=== PATIENT | female | born 2000 | race Two or more races ===

== ENCOUNTER 2019-03-14 19:46 | Emergency (ER) | payer BC ==
[2019-03-14] MEDS ORDERED: ACETAMINOPHEN 325 MG TABLET PO ONE (20:53)
--- NOTE | 2019-03-14 20:56 | ER Document Report ---
ED Medical Screen (RME) - General Chief Complaint: Abdominal Pain Stated Complaint: ABDOMINAL PAIN Time Seen by Provider: 03/14/19 20:49 Notes: Patient is a 18-year-old female who presents to the emergency department with abdominal pain. Patient states that back in November she had a miscarriage and ended up having a Nexplanon placed. The past few days she has had some abdominal pain and she took a test. Today she went to her OB and had her Nexplanon removed. She also had a positive test recently. Patient states that she continues to have abdominal cramping in her mid to right lower abdomen. Exam: Tender mid to right lower abdomen. I have greeted and performed a rapid initial assessment of this patient. A comprehensive ED assessment and evaluation of the patient, analysis of test results and completion of medical decision making process will be conducted by an additional ED providers. TRAVEL OUTSIDE OF THE [place] IN LAST 30 DAYS: No - Related Data Allergies/Adverse Reactions: No Known Allergies Allergy (Unverified 03/14/19 20:49) Past Medical History - Social History Frequency of alcohol use: None Drug Abuse: None Physical Exam - Vital signs Vitals: Temp Pulse Resp BP Pulse Ox 98.2 F 78 18 116/67 99 03/14/19 20:28 03/14/19 20:28 03/14/19 20:28 03/14/19 20:28 03/14/19 20:28 Course - Vital Signs Vital signs: Temp Pulse Resp BP Pulse Ox 98.2 F 78 18 116/67 99 03/14/19 20:45 03/14/19 20:45 03/14/19 20:45 03/14/19 20:45 03/14/19 20:45
[2019-03-14 21:57] LABS: ABSOLUTE EOSINOPHILS # (AUTO) 0.1 10^3/uL (0.0-0.6); ABSOLUTE LYMPHOCYTES (AUTO) 3.1 10^3/uL (0.5-4.7); ABSOLUTE MONOCYTES (AUTO) 0.7 10^3/uL (0.1-1.4); ABSOLUTE NEUT (AUTO) 6.3 10^3/uL (1.7-8.2); BASOPHILS % (AUTO) 0.3 % (0-2); EOSINOPHILS % (AUTO) 0.5 % (0-6); HEMATOCRIT 34.8 % (36.0-47.0); HEMOGLOBIN 11.6 g/dL (12.0-15.5); LYMPHOCYTES % (AUTO) 30.2 % (13-45); MEAN CORPUSCULAR HEMOGLOBIN 26.8 pg (27.0-33.4); MEAN CORPUSCULAR HGB CONC 33.3 g/dL (32.0-36.0); MEAN CORPUSCULAR VOLUME 80 fl (80-97); MONOCYTES % (AUTO) 7.2 % (3-13); PLATELET COUNT 316 10^3/uL (150-450); RED BLOOD COUNT 4.33 10^6/uL (3.72-5.28); RED CELL DISTRIBUTION WIDTH 13.9 % (11.5-14.0); SEGMENTED NEUTROPHILS % (AUTO) 61.8 % (42-78); TOTAL CELLS COUNTED % (AUTO) 100 %; WHITE BLOOD COUNT 10.2 10^3/uL (4.0-10.5)
[2019-03-14 22:09] LABS: APPEARANCE,URINE CLEAR; BILIRUBIN,URINE NEGATIVE (NEGATIVE); COLOR,URINE YELLOW; GLUCOSE, URINE NEGATIVE (NEGATIVE); KETONES,URINE NEGATIVE (NEGATIVE); LEUKOCYTE ESTERASE,URINE NEGATIVE (NEGATIVE); NITRITE,URINE NEGATIVE (NEGATIVE); PROTEIN,URINE NEGATIVE (NEGATIVE); URINE SPECIFIC GRAVITY 1.018; UROBILINOGEN,URINE NEGATIVE mg/dL (<2.0)
[2019-03-14 22:14] LABS: ALBUMIN 4.5 g/dL (3.5-5.0); ALKALINE PHOSPHATASE 65 U/L (38-126); ANION GAP 9 (5-19); ASPARTATE AMINO TRANSFERASE 28 U/L (14-36); BILIRUBIN,TOTAL 0.3 mg/dL (0.2-1.3); BLOOD UREA NITROGEN 12 mg/dL (7-20); CALCIUM 9.6 mg/dL (8.4-10.2); CARBON DIOXIDE 28 mmol/L (22-30); CHLORIDE 100 mmol/L (98-107); POTASSIUM 3.8 mmol/L (3.6-5.0); TOTAL PROTEIN 7.5 g/dL (6.3-8.2)
[2019-03-14 22:30] LABS: GLUCOSE 67 mg/dL (75-110)
[2019-03-14 23:35] LABS: CHLAM PCR NOT DETECTED (NOT DETECT)
--- NOTE | 2019-03-14 23:36 | RADIOLOGY REPORT (SQ) ---
US PELVIS EXAM DATE: 03/14/2019 8:57 PM PROCESS STRIPPER HISTORY: Early . Pelvic pain. COMPARISON: None. TECHNIQUE: Grayscale, color Doppler, and spectral Doppler ultrasound images of the pelvis were obtained. FINDINGS: There is an intrauterine gestational sac with a yolk sac and pole visualized. The crown-rump length measures 0.6 cm corresponding to 6 weeks 3 days of . The heart rate is 126 bpm. There is a 2.2 cm adjacent subchorionic hematoma. The ovaries are normal in size and contain normal color Doppler blood flow. There is a 1.6 cm right ovarian corpus luteum cyst. No free fluid. IMPRESSION: 1. Single live IUP with estimated gestational age 6 weeks 3 days. 2. Small adjacent subchorionic hemorrhage; attention on follow-up imaging is suggested.
--- NOTE | 2019-03-15 00:38 | ER Document Report ---
ED GI/ - General Chief Complaint: Abdominal Pain Stated Complaint: ABDOMINAL PAIN Time Seen by Provider: 03/14/19 20:49 Notes: Patient is a 18-year-old female that comes emergency department for chief complaint of lower abdominal cramping. She had a positive home test, she states that she had a recent miscarriage, had a Nexplanon placed, after her positive home test she was seen by HOLTER TECHNICIAN earlier today and had her Nexplanon removed. She has been cramping for about 3 days. She denies vaginal bleeding or discharge, fever/chills. She states she has some morning sickness and occasional vomiting but denies any other complaints. She is G3, P0 at uncertain gestation. TRAVEL OUTSIDE OF THE [place] IN LAST 30 DAYS: No - Related Data Allergies/Adverse Reactions: No Known Allergies Allergy (Unverified 03/14/19 20:49) Past Medical History - General Information source: Patient - Social History Smoking Status: Never Smoker Frequency of alcohol use: None Drug Abuse: None Lives with: Family Family History: Reviewed & Not Pertinent Patient has suicidal ideation: No Patient has homicidal ideation: No Review of Systems - Review of Systems Constitutional: No symptoms reported EENT: No symptoms reported Cardiovascular: No symptoms reported Respiratory: No symptoms reported Gastrointestinal: See HPI Genitourinary: No symptoms reported Female Genitourinary: See HPI Musculoskeletal: No symptoms reported Skin: No symptoms reported Hematologic/Lymphatic: No symptoms reported Neurological/Psychological: No symptoms reported Physical Exam - Vital signs Vitals: Temp Pulse Resp BP Pulse Ox 98.2 F 79 16 116/67 100 03/14/19 20:27 03/14/19 20:27 03/14/19 20:27 03/14/19 20:27 03/14/19 20:27 - Notes Notes: GENERAL: Alert, interacts well. No acute distress. HEAD: Normocephalic, atraumatic. EYES: Pupils equal, round, and reactive to light. Extraocular movements intact. ENT: Oral mucosa moist, tongue midline. Oropharynx unremarkable. Airway patent. NECK: Full range of motion. Supple. Trachea midline. LUNGS: Clear to auscultation bilaterally, no wheezes, rales, or rhonchi. No respiratory distress. HEART: Regular rate and rhythm. No murmur ABDOMEN: Soft, non-tender. Non-distended. Bowel sounds present in all 4 quadrants. GENITOURINARY: Deferred EXTREMITIES: Moves all 4 extremities spontaneously. No edema, normal radial and dorsalis pedis pulses bilaterally. No cyanosis. BACK: no cervical, thoracic, lumbar midline tenderness. No saddle anesthesia, normal distal neurovascular exam. Moves all extremities in full range of motion. NEUROLOGICAL: Alert and oriented x3. Normal speech. Cranial nerves II through XII grossly intact. PSYCH: Normal affect, normal mood. SKIN: Warm, dry, normal turgor. No rashes or lesions noted. Course - Re-evaluation Re-evalutation: Patient smiling, talkative, well-appearing, has a soft benign abdomen, does not have current complaints. CBC, chemistry unremarkable, hCG is elevated, urinalysis unremarkable, gonorrhea and chlamydia performed in triage negative. Patient has no reported or current bleeding, no discharge. Ultrasound showing subchorionic hemorrhage and intrauterine with heartbeat. No concerning findings otherwise. RhoGam is not indicated. I discussed at length with patient her details, provided her with approval of her , discussed recommendations, follow-up, return precautions. Patient and significant other state appreciation and agreement with plan. Stable at time of discharge. - Vital Signs Vital signs: Temp Pulse Resp BP Pulse Ox 97.9 F 82 16 106/62 100 03/15/19 02:04 03/15/19 02:04 03/15/19 02:04 03/15/19 02:04 03/15/19 02:04 - Laboratory Result Diagrams: 03/14/19 21:38 03/14/19 21:38 Laboratory results interpreted by me: 03/14/19 03/14/19 21:38 21:38 Hgb 11.6 L Hct 34.8 L MCH 26.8 L Glucose 67 L Beta HCG, Quant 82140.00 H Discharge - Discharge Clinical Impression: Abdominal cramping affecting Condition: Stable Disposition: HOME, SELF-CARE Additional Instructions: Your ultrasound indicates a in the uterus at 6 weeks and 3 days, there is a visualized heartbeat. There also is a small subchorionic hemorrhage as we discussed. This is most likely the cause of your cramping. This should resolve with time, I recommend pelvic rest (no significant activities such as running, jumping, lifting, or sexual intercourse until cleared by HOLTER TECHNICIAN). Take the Reglan for nausea if needed, you can take [id number] diphenhydramine with this as well. Return for any concerning symptoms including severe worsening pain, bleeding, fever, or any other concerning or worsening symptoms. Prescriptions: Metoclopramide HCl [Reglan] 5 mg PO ASDIR PRN #30 tablet PRN Reason: Forms: Parent Work Note, Return to Work
[2019-03-15 02:04] VITALS: BP 106/62
== END 2019-03-15 02:04 | disposition home or self-care (01) ==
LOC: ER 19:46
DX: O26.899 Other specified pregnancy related conditions, unspecified trimester (principal); R10.30 Lower abdominal pain, unspecified; O46.8X9 Other antepartum hemorrhage, unspecified trimester; Z3A.00 Weeks of gestation of pregnancy not specified; Z98.890 Other specified postprocedural states; Z87.59 Personal history of other complications of pregnancy, childbirth and the puerperium
CPT/HCPCS: 36415; 76817; 80053; 81001; 83690; 84702; 85025; 86900; 86901; 87491; 87591; 93976; 99284

== ENCOUNTER 2019-10-18 12:37 | Outpatient (CLI) | payer MEDICAID ==
[2019-10-18 13:20] LABS: APPEARANCE,URINE CLOUDY; BILIRUBIN,URINE NEGATIVE (NEGATIVE); COLOR,URINE YELLOW; GLUCOSE, URINE NEGATIVE (NEGATIVE); KETONES,URINE NEGATIVE (NEGATIVE); LEUKOCYTE ESTERASE,URINE LARGE (NEGATIVE); NITRITE,URINE NEGATIVE (NEGATIVE); PROTEIN,URINE NEGATIVE (NEGATIVE); URINE SPECIFIC GRAVITY 1.009; UROBILINOGEN,URINE NEGATIVE mg/dL (<2.0)
[2019-10-18 13:38] LABS: URINE AMPHETAMINES SCREEN NEGATIVE; URINE BARBITURATES SCREEN NEGATIVE; URINE BENZODIAZEPINES SCREEN NEGATIVE; URINE COCAINE SCREEN NEGATIVE; URINE MARIJUANA (THC) SCREEN NEGATIVE; URINE METHADONE SCREEN NEGATIVE; URINE PHENCYCLIDINE SCREEN NEGATIVE
== END 2019-10-18 14:19 | disposition home or self-care (01) ==
LOC: LC 12:37
PROVIDERS: ATTEND Obstetrics & Gynecology Gynecology
DX: O36.8330 Maternal care for abnormalities of the fetal heart rate or rhythm, third trimester, not applicable or unspecified (principal); O47.1 False labor at or after 37 completed weeks of gestation; Z3A.38 38 weeks gestation of pregnancy
CPT/HCPCS: 59025; 80307; 81005; 87086

== ENCOUNTER 2019-10-27 19:39 | Inpatient (IN) | payer MEDICAID ==
--- NOTE | 2019-10-27 19:43 | Non Stress Test Report ---
Non Stress Test Datetime Report Generated by CPN: 10/27/2019 19:43 DEMOGRAPHIC EGA NST: 38.0 INDICATION Indication for Study (NST) Other: IUP at 38.0; Not in labor VITAL SIGNS Temperature - NST: 98.4 Pulse - NST: 112 RESP - NST: 18 NBPSYS NST: 113 NBPDIA NST: 71 MONITORING Monitor Explained: Monitor Explained; Test Explained; Patient Verbalized Understanding Time on Monitor: 10/18/2019 12:50 Time off Monitor: 10/18/2019 13:40 NST Duration: 50 NST INTERVENTIONS NST Interventions: PO Hydration Physician Notified NST: K. Cerda, CNM BABY A: [id number] BABY A Movement : Present Contraction Frequency : Irreg FHR Baseline : 135 Accelerations : 15X15 Decelerations : Variable Variability : Moderate 6-25bpm NST Review: Meets Criteria for Reactive NST NST Review and Verified By : R Darek RN NST Results: Reactive NST COMMENTS NST Comments: K. Cerda, CNM on unit and strip reviewed. NST REPORT Report Trigger: Send Report
[2019-10-27 20:18] LABS: APPEARANCE,URINE SLIGHTLY-CLOUDY; BILIRUBIN,URINE NEGATIVE (NEGATIVE); COLOR,URINE YELLOW; GLUCOSE, URINE 50 mg/dL (NEGATIVE); KETONES,URINE NEGATIVE (NEGATIVE); LEUKOCYTE ESTERASE,URINE LARGE (NEGATIVE); NITRITE,URINE NEGATIVE (NEGATIVE); PROTEIN,URINE 30 mg/dL (NEGATIVE); URINE SPECIFIC GRAVITY 1.018; UROBILINOGEN,URINE NEGATIVE mg/dL (<2.0)
[2019-10-27] MEDS ORDERED: PENICILLIN G POTASSIUM 5,000,000 UNIT in DEXTROSE 5%-WATER 100 ML IV ONE (20:39)
[2019-10-27] MEDS ORDERED: OXYTOCIN/0.9 % SODIUM CHLORIDE 30 UNIT/500 ML RTUINJ IV PRN (20:42)
[2019-10-27] MEDS ORDERED: LIDOCAINE 1% INJ-PF (10 MG/ML) 30 ML SDV ONE (20:44)
[2019-10-27] MEDS ORDERED: OXYTOCIN/0.9 % SODIUM CHLORIDE 30 UNIT/500 ML RTUINJ ONE (20:44)
[2019-10-27] MEDS ORDERED: MISOPROSTOL 0.2 MG TABLET ONE (20:44)
[2019-10-27] MEDS ORDERED: PENICILLIN G-K 5 MILLION UNIT VIAL ONE (20:44)
[2019-10-27] MEDS ORDERED: OXYTOCIN 10 UNIT/ML VIAL ONE (20:44)
[2019-10-27 20:55] LABS: URINE AMPHETAMINES SCREEN NEGATIVE; URINE BARBITURATES SCREEN NEGATIVE; URINE BENZODIAZEPINES SCREEN NEGATIVE; URINE COCAINE SCREEN NEGATIVE; URINE MARIJUANA (THC) SCREEN NEGATIVE; URINE METHADONE SCREEN NEGATIVE; URINE PHENCYCLIDINE SCREEN NEGATIVE
[2019-10-27 21:12] LABS: ABSOLUTE EOSINOPHILS # (AUTO) 0.1 10^3/uL (0.0-0.6); ABSOLUTE LYMPHOCYTES (AUTO) 1.9 10^3/uL (0.5-4.7); ABSOLUTE MONOCYTES (AUTO) 0.8 10^3/uL (0.1-1.4); ABSOLUTE NEUT (AUTO) 6.1 10^3/uL (1.7-8.2); BASOPHILS % (AUTO) 0.2 % (0-2); EOSINOPHILS % (AUTO) 0.9 % (0-6); HEMATOCRIT 32.6 % (36.0-47.0); HEMOGLOBIN 10.7 g/dL (12.0-15.5); LYMPHOCYTES % (AUTO) 21.2 % (13-45); MEAN CORPUSCULAR HEMOGLOBIN 26.2 pg (27.0-33.4); MEAN CORPUSCULAR HGB CONC 32.9 g/dL (32.0-36.0); MEAN CORPUSCULAR VOLUME 80 fl (80-97); MONOCYTES % (AUTO) 8.8 % (3-13); PLATELET COUNT 362 10^3/uL (150-450); RED BLOOD COUNT 4.09 10^6/uL (3.72-5.28); RED CELL DISTRIBUTION WIDTH 14.5 % (11.5-14.0); SEGMENTED NEUTROPHILS % (AUTO) 68.9 % (42-78); TOTAL CELLS COUNTED % (AUTO) 100 %; WHITE BLOOD COUNT 8.8 10^3/uL (4.0-10.5)
[2019-10-27] MEDS: RINGERS SOLUTION,LACTATED 1,000 ML IV PRN (21:30)
[2019-10-28] MEDS ORDERED: FENTANYL/BUPIVACAINE/NS/PF 300 MCG/150 ML RTUINJ EPI ONE (00:53)
[2019-10-28] MEDS ORDERED: EPHEDRINE SULFATE INJ 50 MG/1 ML AMPULE ONE (00:53)
[2019-10-28] MEDS ORDERED: BUPIVACAINE HCL 0.25 % INJ/PF (2.5 MG/1 ML) 30 ML VIAL ONE (00:53)
[2019-10-28] MEDS ORDERED: PENICILLIN G-K 5 MILLION UNIT VIAL ONE ×3 (01:04→09:30)
[2019-10-28] MEDS: PENICILLIN G POTASSIUM 2,500,000 UNIT in DEXTROSE 5%-WATER 50 ML IV SCH ×4 (01:58→14:21)
[2019-10-28] MEDS: RINGERS SOLUTION,LACTATED 1,000 ML IV PRN ×2 (01:59→02:24)
--- NOTE | 2019-10-28 06:50 | Admission Physical ---
Datetime Report Generated by CPN: 10/28/2019 06:50 CURRENT ADMISSION Chief Complaint: Uterine Contractions; Suspected Ruptured Membranes Indication for Induction: PROM Admit Impression : Term, Intrauterine ; Ruptured Membranes; Induction of Labor Admit Plan: Admit to Unit; Initiate Labor Augmentation Protocol ALLERGIES Medication Allergies: No Medication Allergies: No Known Allergies (10/18/2019) Latex: No Latex Allergies OBSTETRICAL HISTORY EDC: 11/01/2019 00:00 : 2 Para: 0 Term: 0 : 0 SAB: 1 IAB: 0 Livin Gestational Diabetes: No Rh Sensitization: No Incompetent Cervix: No TABATHA: No Infertility: No ART Treatment: No Uterine Anomaly: No IUGR: No Hx Previous C/S: No Macrosomia: No Hx Loss/Stillborn: No PIH: No Hx : No Placenta Previa/Abruption: No Depression/PP Depression: No PTL/PROM: No Post Hemorrhage: No Current Procedures: Ultrasound Obstetrical History Comments: Nov 2018 SAB SEE RECORDS Alcohol: No Marijuana : No Cocaine: No Other Illicit Drugs: No Cigarettes: Never Smoker. 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 Surgery: No Heart Disease: No Hosp/Surgery: No Autoimmune Disorder: No Anesthetic Complications: No Kidney Disease: No Abnormal Pap Smear: No Neuro/Epilepsy: No Psychiatric Disorders: No Other Medical Diseases: No Hepatitis/Liver Disease: No Significant Family History: No Varicosities/Phlebitis: No Trauma/Violence : No Thyroid Dysfunction: No INFECTIOUS HISTORY Gonorrhea: No Genital Herpes: No Chlamydia: No Tuberculosis: No Syphilis: No Hepatitis: No HIV/AIDS Exposure: No Rash or Viral Illness: No HPV: No PHYSICAL EXAM General: Normal HEENT: Normal Neurologic: Normal Thyroid: Normal Heart: Normal Lungs: Normal Breast: Normal Back: Normal Abdomen: Normal Genitourinary Exam: Normal Extremities: Normal DTRs: Normal Pelvic Type: Adequate Vital Signs: Reviewed; Within Normal Limits VAGINAL EXAM Dilatation: 5 Effacement: 90 Station: -1 MEMBRANES Pooling: Positive Membranes: Ruptured Amniotic Fluid Color: Clear FETUS A EGA: 39.3 Monitoring: External US FHR- Baseline: 120 Variability: Moderate 6-25bpm Accelerations: 15X15 Decelerations: None FHR Category: Category I Estimated Weight (gm): 3400 Presentation: Vertex PLANS FOR LABOR AND DELIVERY Labor and Delivery: None Pain Management: Epidural Feeding Preference: Breast Benefit of Breast Feed Discussed: Yes (Annotations: Data stored by [facility] on behalf of user) Circumcision: N/A INFORMED CONSENT Signature: with User ID: [email or web address]
--- NOTE | 2019-10-28 12:45 | L&D Progress Notes ---
PROGRESS NOTES Datetime Report Generated by CPN: 10/28/2019 12:44 PROGRESS NOTE Procedures: Sterile Vag Exam Plan: Continue Present Management Plan Other: Notify Dr Carlos Vital Signs : Reviewed; Within Normal Limits Comment: SVE marked caput with cervix still present. Little movement with attempted push. Epidural in place. Dr Carlos called to evaluate. VAGINAL EXAM Dilatation: 5 Effacement: 90 Station: -1 LAST VAGINAL EXAM-NURSING Nursing Exam Dilitation: 10.0 Nursing Exam Effacement: 100 Nursing Exam Station: 2 Nursing Exam Contractions: Unable to determine cx pattern d/t pt sitting up for epidural MEMBRANES Pooling: Positive Membranes: Ruptured Amniotic Fluid Color: Clear FETUS A FHR - Baseline: 10 Monitoring: External US : 39.3 Estimated Weight (gm): 3400 Presentation: Vertex SIGNATURE SIGNATURE: [id number];[id number];[id number] Assignment: Brynn Gonzalez MD Signature: with User ID: Veronica : with User ID: Veronica : I personally evaluated and examined the patient in conjunction with the MLP and agree with the assessment, treatment plan and disposition.
[2019-10-28] MEDS ORDERED: ACETAMINOPHEN 325 MG TABLET ONE (13:44)
[2019-10-28] MEDS ORDERED: PROMETHAZINE HCL 25 MG SUPP.RECT PR PRN (13:50)
[2019-10-28] MEDS ORDERED: GLYCERIN/WITCH HAZEL LEAF 1 EACH MED..WIPE TP PRN (13:50)
[2019-10-28] MEDS ORDERED: DIPH/PERTUSS(ACELL)/TETANUS VAC/PF 0.5 ML SYR (>=10YO) IM PRN (13:50)
[2019-10-28] MEDS ORDERED: ACETAMINOPHEN 325 MG TABLET PO ONE (13:50)
[2019-10-28] MEDS ORDERED: ACETAMINOPHEN WITH CODEINE #3 TABLET PO PRN ×2 (13:50)
[2019-10-28] MEDS ORDERED: PROMETHAZINE HCL 25 MG TABLET PO PRN (13:50)
[2019-10-28] MEDS ORDERED: ACETAMINOPHEN 650 MG SUPP.RECT PR PRN (13:50)
[2019-10-28] MEDS ORDERED: BENZOCAINE/MENTHOL AEROSOL SPRAY 56 ML TOP PRN (13:50)
[2019-10-28] MEDS ORDERED: NA PHOS,M-B/NA PHOS,DI-BA (ADULT) 133 ML ENEMA PR PRN (13:50)
[2019-10-28] MEDS ORDERED: MEASLES,MUMPS&RUBELLA VACC/PF 0.5 ML VIAL SUBCUT PRN (13:50)
[2019-10-28] MEDS ORDERED: DIBUCAINE 1% OINTMENT 28 GM TP PRN (13:50)
[2019-10-28] MEDS ORDERED: ZOLPIDEM TARTRATE 5 MG TABLET PO PRN (13:50)
[2019-10-28] MEDS ORDERED: DIPHENHYDRAMINE HCL 25 MG CAPSULE PO PRN (13:50)
[2019-10-28] MEDS ORDERED: PSEUDOEPHEDRINE HCL 30 MG TABLET PO PRN (13:50)
[2019-10-28] MEDS ORDERED: MAGNESIUM HYDROXIDE SUSP 30 ML UDCUP PO PRN (13:50)
[2019-10-28] MEDS ORDERED: PROMETHAZINE HCL INJ 25 MG/1 ML VIAL IV PRN (13:50)
[2019-10-28] MEDS ORDERED: OXYTOCIN/0.9 % SODIUM CHLORIDE 30 UNIT/500 ML RTUINJ IV PRN (13:50)
[2019-10-28] MEDS ORDERED: IBUPROFEN 800 MG TABLET ONE (14:48)
[2019-10-28] MEDS: IBUPROFEN 800 MG TABLET PO SCH ×2 (14:50→21:59)
[2019-10-28] MEDS ORDERED: AMPICILLIN SOD/SULBACTAM 3 GM VIAL IV SCH (15:15)
--- NOTE | 2019-10-28 16:31 | Delivery Summary ---
Del Sum A-C Datetime Report Generated by CPN: 10/28/2019 16:31 DELIVERY PERSONNEL DELIVERY PERSONNEL: [id number] Delivery Doctor:: Lynn Cárdenas CNM Labor and Delivery Nurse:: Kristie Ordonez RNfinish carpenter Nurse:: NATASHA Lama Nursery Nurse:: Rosa Maria Barnes RN [employer] Department Head/BPM ANALYST: Gisell Kauffman CST [employer] Department Head/BPM ANALYST: Eda [facility], MANAGEMENT DEVELOPMENT SPECIALIST MATERNAL INFORMATION Delivery Anesthesia: Epidural Medications After Delivery: Pitocin Bolus-Please Comment; Pitocin 30 Units in 500ml NS/D5W Delivery QBL: 101 Maternal Complications: Chorioamnionitis Provider Comments: Called to room 3 for delivery after patient had been pushing. Caput at perineum with pushing. Vertex delivered at 1317-OA to MARIA ESTHER, turtle sign noted. Dr Gonzalez called to come to room 3. Head of bed lowered, Rosanna, then suprapubic pressure applied to deliver shoulders and body at 1318-time of dystocia 1 min 15 sec. Marked caput. Nursery RN present. Spontaneous cry and respirations after stimulation w 4X4. Apgars 8-9. [address] Gonzalez arrivedshortly after of baby. Placent, membranes and cord expelled at 1323, Cerda presentation. Perineum inspected, superficial tear of left labia repaired as above. Small vaginal tear with no repair needed. Patient tolerated procedure well. LABOR SUMMARY EDC: 11/01/2019 00:00 No. Babies in Womb: 1 Attempted: No Labor Anesthesia: Epidural LABOR INFORMATION Reason for Induction: Not Applicable Onset of Labor: 10/27/2019 19:15 Complete Dilatation: 10/28/2019 12:08 Oxytocin: Augmentation Group B Beta Strep: Positive Antibiotics # of Doses: 4 Antibiotics Time of Last Dose: 955 Name of Antibiotic Given: Penicillin Steroids Given: None Reason Steroids Not Administered: Not Applicable MEMBRANES Membranes Rupture Method: Spontaneous Rupture of Membranes: 10/27/2019 19:15 Length of Rupture (hr): 18.05 Amniotic Fluid Color: Clear Amniotic Fluid Amount: Small Amniotic Fluid Odor: Normal STAGES OF LABOR Stage 1 hr: 16 Stage 1 min: 53 Stage 2 hr: 1 Stage 2 min: 10 Stage 3 hr: 0 Stage 3 min: 5 Total Time in Labor hr: 18 Total Time in Labor min: 8 VAGINAL DELIVERY Episiotomy: None Laceration #1: Vaginal Laceration Extension #1: N/A Other Laceration: left labial Laceration Repair: Yes Laceration Repair Note: Left labial tear repaired with 2 interrupted stitches using 3-0 chromic Sponge Count Correct: N/A Sharps Count Correct: Yes CSECTION DELIVERY Primary Indication: N/A Secondary Indication: N/A CSection Incidence: N/A Labor: N/A Elective: N/A CSection Incision: N/A BABY A INFORMATION Infant Delivery Date/Time: 10/28/2019 13:18 Method of Delivery: Vaginal Nurse Controlled Delivery: No Born in Route : No : N/A Forceps: N/A Vacuum Extraction: N/A Shoulder Dystocia : Yes SHOULDER DYSTOCIA BABY A Delivery of Head: 10/28/2019 13:17 Time Head to Delivery : 1.0 1st Intervention to Resolve: Gentle Attempt at Traction, Assisted by Maternal Expulsive Efforts 2nd Intervention to Resolve: McRobert's Maneuver 3rd Intervention to Resolve: Suprapubic Pressure Verify NO Fundal Pressure: No Fundal Pressure Applied Arm Under Symphisis at Del: Left PRESENTATION/POSITION BABY A Presentation: Cephalic Cephalic Presentation: Vertex Vertex Position: Right Occipital Anterior Breech Presentation: N/A PLACENTA INFORMATION BABY A Placenta Delivery Time : 10/28/2019 13:23 Placenta Method of Delivery: Spontaneous Placenta Status: Delivered SCORES BABY A Heart Rate 1 min: >100 bpm Resp Effort 1 min: Good Cry Reflex Irritability 1 min: Cough or Sneeze or Pulls Away Muscle Tone 1 min: Active Motion Color 1 min: Blue/Pale SCORE 1 MIN: 8 Heart Rate 5 min: >100 bpm Resp Effort 5 min: Good Cry Reflex Irritability 5 min: Cough or Sneeze or Pulls Away Muscle Tone 5 min: Active Motion Color 5 min: Body [place], Extremities Blue SCORE 5 MIN: 9 INFORMATION BABY A Gestational Age at Delivery: 39.3 Gestational Status: Full Term- 39- 40.6 Weeks Infant Outcome : Liveborn Condition : Stable Sex: Female IDENTIFICATION BABY A Infant Verification Date/Time: 10/28/2019 13:28 ID Band Number: [id number] Mother's Name Verified: Yes Infant RN Verifying Infant: S Camp [facility] Additional Verifying Personnel: Merly Ordonez, RN WEIGHT/LENGTH BABY A Birthweight (gm): 3410 Weight (lb): 7 Weight (oz): 8 Infant Length (in): 21.25 Infant Length (cm): 53.98 CORD INFORMATION BABY A No. Cord Vessels: 3 Nuchal Cord : N/A Cord Blood Taken: Yes-For Eval (Mom's Blood Type - or O+) Suction: Mouth ASSESSMENT BABY A Complications: Multiple Variable Decels; Shoulder Dystocia Physical Findings at Delivery: Caput Succedaneum; Molding of the Head; Bruising Infant Respirations: Appears Normal Skin to Skin: Yes Skin to Skin Time (min): 60 Infant Care By: Roberto Carlos Barnes RN Transferred To: Remains with Mother BABY B INFORMATION : N/A SIGNATURES Assignment: Brynn Gonzalez MD Signature: with User ID: Veronica : with User ID: Veronica : I personally evaluated and examined the patient in conjunction with the MLP and agree with the assessment, treatment plan and disposition.
[2019-10-28] MEDS: DOCUSATE SODIUM 100 MG CAPSULE PO SCH (17:57)
[2019-10-28] MEDS: FERROUS SULFATE 325 MG TABLET PO SCH (17:57)
[2019-10-28] MEDS: AMPICILLIN SODIUM/SULBACTAM NA 3 GM in NORMAL SALINE 100 ML IV SCH (17:58)
[2019-10-28] MEDS: FAMOTIDINE 20 MG TABLET PO SCH (21:58)
[2019-10-29] MEDS: AMPICILLIN SODIUM/SULBACTAM NA 3 GM in NORMAL SALINE 100 ML IV SCH ×3 (02:40→11:36)
[2019-10-29] MEDS: IBUPROFEN 800 MG TABLET PO SCH ×3 (05:25→22:53)
[2019-10-29 07:56] LABS: HEMATOCRIT 28.5 % (36.0-47.0); HEMOGLOBIN 9.5 g/dL (12.0-15.5); MEAN CORPUSCULAR HEMOGLOBIN 26.3 pg (27.0-33.4); MEAN CORPUSCULAR HGB CONC 33.4 g/dL (32.0-36.0); MEAN CORPUSCULAR VOLUME 79 fl (80-97); PLATELET COUNT 305 10^3/uL (150-450); RED BLOOD COUNT 3.61 10^6/uL (3.72-5.28); RED CELL DISTRIBUTION WIDTH 14.4 % (11.5-14.0); WHITE BLOOD COUNT 13.7 10^3/uL (4.0-10.5)
[2019-10-29] MEDS: PRENATAL VITAMIN W DHA CAPSULE PO SCH (10:35)
[2019-10-29] MEDS: DOCUSATE SODIUM 100 MG CAPSULE PO SCH ×2 (10:35→17:25)
[2019-10-29] MEDS: FAMOTIDINE 20 MG TABLET PO SCH ×2 (10:35→22:52)
[2019-10-29] MEDS: SENNOSIDES/DOCUSATE 8.6-50 MG 1 EACH TABLET PO SCH (10:35)
[2019-10-29] MEDS: FERROUS SULFATE 325 MG TABLET PO SCH ×2 (10:35→17:25)
--- NOTE | 2019-10-29 11:27 | PDOC PROGRESS REPORT ---
Subjective-OB Progress Note for:: 10/29/19 Subjective: Pt doing well, no concerns. She is feeling good today. Bonding with baby, reports light bleeding, reg diet and voiding w/o difficulty. Physical Exam (OB) Vital Signs: Temp Pulse Resp BP Pulse Ox 97.5 F 66 16 102/51 L 99 10/29/19 07:30 10/29/19 07:30 10/29/19 07:30 10/29/19 07:30 10/29/19 07:30 Intake & Output 10/28/19 10/29/19 10/30/19 06:59 06:59 06:59 Intake Total 612 100 100 Output Total 2 Balance 612 98 100 Weight 72.8 kg - PIH/Pre-Eclampsia Headache: Absent Epigastric Pain: No Visual Changes: No - Lochia Lochia Amount: Scant < 10 ml Lochia Color: Rubra/Red - Abdomen Description: Soft Hernia Present: No Fundal Description: Firm, Midline Fundal Height: u/u - u/2 Objective-Diagnostic Laboratory: 10/29/19 07:25 10/29/19 07:25 WBC 13.7 H RBC 3.61 L Hgb 9.5 L Hct 28.5 L MCV 79 L MCH 26.3 L MCHC 33.4 RDW 14.4 H Plt Count 305 Assessment and Plan(PN) - Assessment and Plan (1) Chorioamnionitis, delivered, current hospitalization Is this a current diagnosis for this admission?: Yes (2) Delivery normal Is this a current diagnosis for this admission?: Yes (3) Qualifiers: Weeks of gestation: 39 weeks Qualified Code(s): Z3A.39 - 39 weeks gestation of Is this a current diagnosis for this admission?: Yes (4) Shoulder (girdle) dystocia during labor and delivery, delivered Is this a current diagnosis for this admission?: Yes - Time Spent with Patient Time with patient: Less than 15 minutes Smoking Education Provided: Over 3 minutes - Disposition Anticipated Discharge: Home Within: within 24 hours
[2019-10-29] MEDS ORDERED: AZITHROMYCIN 250 MG TABLET PO ONE (12:00)
[2019-10-30] MEDS: IBUPROFEN 800 MG TABLET PO SCH (05:18)
[2019-10-30 08:27] VITALS: BP 103/57
[2019-10-30] MEDS: SENNOSIDES/DOCUSATE 8.6-50 MG 1 EACH TABLET PO SCH (09:51)
[2019-10-30] MEDS: DOCUSATE SODIUM 100 MG CAPSULE PO SCH (09:51)
[2019-10-30] MEDS: FERROUS SULFATE 325 MG TABLET PO SCH (09:51)
[2019-10-30] MEDS: PRENATAL VITAMIN W DHA CAPSULE PO SCH (09:51)
[2019-10-30] MEDS: FAMOTIDINE 20 MG TABLET PO SCH (09:51)
--- NOTE | 2019-10-30 12:28 | PDOC DISCHARGE SUMMARY ---
Impression - Admit/DC Date/PCP Admission Date/Primary Care Provider: 10/27/19 20:40 JACQUI LIU MD Discharge Date: 10/30/19 - Discharge Diagnosis (1) Anemia complicating , third trimester Is this a current diagnosis for this admission?: Yes (2) Chorioamnionitis, delivered, current hospitalization Is this a current diagnosis for this admission?: Yes (3) Shoulder (girdle) dystocia during labor and delivery, delivered Is this a current diagnosis for this admission?: Yes (4) Delivery normal Is this a current diagnosis for this admission?: Yes (5) Is this a current diagnosis for this admission?: Yes (6) Obstetric labial laceration, delivered, current hospitalization Is this a current diagnosis for this admission?: Yes (7) Vaginal abrasion, delivered, current hospitalization Is this a current diagnosis for this admission?: Yes - Assessment Summary: 19yo G2 now P1 s/p ppd 2 stable and ready for discharge, understands warning s/s and when to seek immediate care or rtc/[facility] - Additional Information Resuscitation Status: Full Code Discharge Diet: As Tolerated, Regular Discharge Activity: Activity As Tolerated, Balance Activity w/Rest, No Lifting Over 10 Pounds, Pelvic Rest, No tub bath, Walk Frequently Referrals: JACQUI LIU MD [Primary Care Provider] - Prescriptions: Ibuprofen [Motrin 800 mg Tablet] 800 mg PO Q8HP PRN #30 tablet PRN Reason: Abdominal Cramping Docusate Sodium [Colace 100 mg Capsule] 100 mg PO BID #60 capsule Ferrous Sulfate [Feosol 325 mg Tablet] 325 mg PO BID #60 tablet Home Medications: Pnv No.95/Ferrous Fum/Folic AC [ Caplet] 1 each PO DAILY 10/18/19 Docusate Sodium [Colace 100 mg Capsule] 100 mg PO BID #60 capsule 10/30/19 Ferrous Sulfate [Feosol 325 mg Tablet] 325 mg PO BID #60 tablet 10/30/19 Ibuprofen [Motrin 800 mg Tablet] 800 mg PO Q8HP PRN #30 tablet 10/30/19 Results Laboratory Results: WBC 13.7 10^3/uL (4.0-10.5) H 10/29/19 07:25 RBC 3.61 10^6/uL (3.72-5.28) L 10/29/19 07:25 Hgb 9.5 g/dL (12.0-15.5) L 10/29/19 07:25 Hct 28.5 % (36.0-47.0) L 10/29/19 07:25 MCV 79 fl (80-97) L 10/29/19 07:25 MCH 26.3 pg (27.0-33.4) L 10/29/19 07:25 MCHC 33.4 g/dL (32.0-36.0) 10/29/19 07:25 RDW 14.4 % (11.5-14.0) H 10/29/19 07:25 Plt Count 305 10^3/uL (150-450) 10/29/19 07:25 Lymph % (Auto) 21.2 % (13-45) 10/27/19 20:55 [place] % (Auto) 8.8 % (3-13) 10/27/19 20:55 Eos % (Auto) 0.9 % (0-6) 10/27/19 20:55 Baso % (Auto) 0.2 % (0-2) 10/27/19 20:55 Absolute Neuts (auto) 6.1 10^3/uL (1.7-8.2) 10/27/19 20:55 Absolute Lymphs (auto) 1.9 10^3/uL (0.5-4.7) 10/27/19 20:55 Absolute Monos (auto) 0.8 10^3/uL (0.1-1.4) 10/27/19 20:55 Absolute Eos (auto) 0.1 10^3/uL (0.0-0.6) 10/27/19 20:55 Absolute Basos (auto) 0.0 10^3/uL (0.0-0.2) 10/27/19 20:55 Seg Neutrophils % 68.9 % (42-78) 10/27/19 20:55 Urine Color YELLOW 10/27/19 19:47 Urine Appearance SLIGHTLY-CLOUDY 10/27/19 19:47 Urine pH 6.0 (5.0-9.0) 10/27/19 19:47 Ur Specific [place] 1.018 10/27/19 19:47 Urine Protein 30 mg/dL (NEGATIVE) H 10/27/19 19:47 Urine Glucose (UA) 50 mg/dL (NEGATIVE) H 10/27/19 19:47 Urine Ketones NEGATIVE mg/dL (NEGATIVE) 10/27/19 19:47 Urine Blood NEGATIVE (NEGATIVE) 10/27/19 19:47 Urine Nitrite NEGATIVE (NEGATIVE) 10/27/19 19:47 Urine Bilirubin NEGATIVE (NEGATIVE) 10/27/19 19:47 Urine Urobilinogen NEGATIVE mg/dL (<2.0) 10/27/19 19:47 Ur Leukocyte Esterase LARGE (NEGATIVE) H 10/27/19 19:47 Urine WBC (Auto) 62 /HPF 10/27/19 19:47 Urine RBC (Auto) 3 /HPF 10/27/19 19:47 Urine Bacteria (Auto) 1+ /HPF 10/27/19 19:47 Squamous Epi Cells Auto 2 /HPF 10/27/19 19:47 U Non-Squamous Epis Auto 1 /HPF 10/27/19 19:47 Urine Mucus (Auto) MANY /LPF 10/27/19 19:47 Urine Ascorbic Acid NEGATIVE (NEGATIVE) 10/27/19 19:47 Membranes Rupture POSITIVE (NEGATIVE) H 10/27/19 19:52 Urine Opiates Screen NEGATIVE 10/27/19 19:47 Urine Methadone Screen NEGATIVE 10/27/19 19:47 Ur Barbiturates Screen NEGATIVE 10/27/19 19:47 Ur Phencyclidine Scrn NEGATIVE 10/27/19 19:47 Ur Amphetamines Screen NEGATIVE 10/27/19 19:47 U Benzodiazepines Scrn NEGATIVE 10/27/19 19:47 Urine Cocaine Screen NEGATIVE 10/27/19 19:47 U Marijuana (THC) Screen NEGATIVE 10/27/19 19:47 RPR NONREACTIVE (NONREACTIVE) 10/27/19 20:55 Blood Type O POSITIVE 10/27/19 20:55 Antibody Screen NEGATIVE 10/27/19 20:55
== END 2019-10-30 16:00 | disposition home or self-care (01) | DRG 807 ==
LOC: LC 19:39 → LR 20:40 → 2S 10-28 16:25
PROVIDERS: ADMIT Obstetrics & Gynecology; ATTEND Obstetrics & Gynecology
PROC: 10E0XZZ Delivery of Products of Conception, External Approach (ICD-10-PCS; principal; 2019-10-28)
PROC: 0HQ9XZZ Repair Perineum Skin, External Approach (ICD-10-PCS; 2019-10-28)
DX: O41.1230 Chorioamnionitis, third trimester, not applicable or unspecified (principal); Z37.0 Single live birth; O99.824 Streptococcus B carrier state complicating childbirth; O99.02 Anemia complicating childbirth; O66.0 Obstructed labor due to shoulder dystocia; O70.0 First degree perineal laceration during delivery; O76 Abnormality in fetal heart rate and rhythm complicating labor and delivery; Z3A.39 39 weeks gestation of pregnancy
CPT/HCPCS: 1967; 36415; 80307; 81001; 84112; 85025; 85027; 86592; 86850; 86900; 86901; 88307; C1758; J0295; J2540; J2590; J3010; J3490; J7050; J7060

== ENCOUNTER 2020-03-13 10:37 | Emergency (ER) | payer MEDICAID ==
[2020-03-13] MEDS ORDERED: NORMAL SALINE 1000 ML 1,000 ML IV ONE (11:18)
--- NOTE | 2020-03-13 12:06 | RADIOLOGY REPORT (SQ) ---
EXAM DESCRIPTION: U/S [id number] TRNABD 1GES W/ODOP IMAGES COMPLETED DATE/TIME: 03/13/2020 11:37 am REASON FOR STUDY: , pain, 9 weeks COMPARISON: None. TECHNIQUE: Transabdominal static and realtime grayscale images acquired of the pelvis. Additional se lected spectral and color Doppler images recorded. All images stored on PACs. bHCG: Not available. CLINICAL DATES: LMP 12/23/2019. EGA based on LMP 11 weeks 4 days. XAVIER based on LMP 09/28/2020. LIMITATIONS: None. FINDINGS: FETUS: Single Living intrauterine . ULTRASOUND EGA: 11 weeks 2 days. ULTRASOUND XAVIER: 09/30/2020. CRL: 4.31 cm. FHR: 160 beats per minute. SURVEY: Too early to assess. AMNIOTIC FLUID: Too early to assess. PLACENTA: Too early to assess. SUBCHORIONIC BLEED: No. UTERUS: The uterus measures 11 x 9 x 7 cm. There is an intrauterine gestational sac that contains an embryo and a yolk sac. CERVICAL LENGTH: 2.9 cm. Closed. RIGHT ADNEXA: Unable to visualize the right ovary. There is no adnexal mass. LEFT ADNEXA: Unable to visualize the left ovary. There is no adnexal mass. FREE FLUID: None. OTHER: No other findings. IMPRESSION: LIVE INTRAUTERINE . EGA 11 weeks 4 days based on LMP with concordant biometric parameters. UNABLE TO VISUALIZE THE MATERNAL OVARIES DUE TO OVERLYING BOWEL GAS. THERE IS NO MATERNAL MASS. Trimester of : First trimester - 0 to 13 weeks. TECHNICAL DOCUMENTATION: JOB ID: [id number] 2010 [employer]- All Rights Reserved rev-08/25 Reading location - IP/workstation name: [facility] [place]-
[2020-03-13 12:12] LABS: ABSOLUTE LYMPHOCYTES (AUTO) 1.8 10^3/uL (0.5-4.7); ABSOLUTE MONOCYTES (AUTO) 0.6 10^3/uL (0.1-1.4); ABSOLUTE NEUT (AUTO) 7.5 10^3/uL (1.7-8.2); BASOPHILS % (AUTO) 0.2 % (0-2); EOSINOPHILS % (AUTO) 0.3 % (0-6); HEMATOCRIT 37.5 % (36.0-47.0); HEMOGLOBIN 12.4 g/dL (12.0-15.5); LYMPHOCYTES % (AUTO) 17.9 % (13-45); MEAN CORPUSCULAR HEMOGLOBIN 25.9 pg (27.0-33.4); MEAN CORPUSCULAR VOLUME 79 fl (80-97); MONOCYTES % (AUTO) 5.6 % (3-13); PLATELET COUNT 329 10^3/uL (150-450); RED BLOOD COUNT 4.77 10^6/uL (3.72-5.28); RED CELL DISTRIBUTION WIDTH 14.7 % (11.5-14.0); TOTAL CELLS COUNTED % (AUTO) 100 %; WHITE BLOOD COUNT 9.8 10^3/uL (4.0-10.5)
[2020-03-13 12:16] LABS: APPEARANCE,URINE SLIGHTLY-CLOUDY; BILIRUBIN,URINE NEGATIVE (NEGATIVE); COLOR,URINE YELLOW; GLUCOSE, URINE NEGATIVE (NEGATIVE); KETONES,URINE TRACE mg/dL (NEGATIVE); LEUKOCYTE ESTERASE,URINE SMALL (NEGATIVE); NITRITE,URINE NEGATIVE (NEGATIVE); PROTEIN,URINE 30 mg/dL (NEGATIVE); URINE SPECIFIC GRAVITY 1.028; UROBILINOGEN,URINE NEGATIVE mg/dL (<2.0)
[2020-03-13 12:29] LABS: ANION GAP 8 (5-19); BLOOD UREA NITROGEN 7 mg/dL (7-20); CALCIUM 9.8 mg/dL (8.4-10.2); CARBON DIOXIDE 27 mmol/L (22-30); CHLORIDE 100 mmol/L (98-107); GLUCOSE 71 mg/dL (75-110); POTASSIUM 3.9 mmol/L (3.6-5.0)
[2020-03-13 13:14] VITALS: BP 121/60
--- NOTE | 2020-03-13 13:37 | ER Document Report ---
ED GI/ - General Chief Complaint: Nausea/Vomiting Stated Complaint: DIZZINESS Time Seen by Provider: 03/13/20 11:01 Notes: HPI: 19-year-old -0-1-1 around 11 weeks by dates who presents today with around 3 to 4 days of some nausea, vomiting, intermittent diarrhea, and a slight sore throat. Patient denies any cough, shortness of breath, vaginal bleeding, or dysuria. ROS: See HPI All other review of systems reviewed and otherwise negative Reviewed vital signs and nursing note as charted by RN. PHYSICAL EXAM: CONSTITUTIONAL: Alert and oriented and responds appropriately to questions. Well-appearing; well-nourished HEAD: Normocephalic; atraumatic EYES: Sclerae non-icteric ENT: Normal nose; no rhinorrhea; moist mucous membranes; pharynx without lesions noted NECK: Supple without meningismus; non-tender; no cervical lymphadenopathy, no masses CARD: Regular rate and rhythm; no murmurs; symmetric distal pulses RESP: Normal chest excursion without splinting or tachypnea; breath sounds clear and equal bilaterally; no wheezes, no rhonchi, no rales ABD/GI: Normal bowel sounds; non-distended; soft, no focal tenderness or palpable masses. BACK: The back appears normal and is non-tender to palpation EXT: Normal ROM in all joints; non-tender to palpation; no edema SKIN: No acute lesions noted NEURO: CN 2-12 intact; 5/5 bilateral upper and lower extremity strength with sensation intact to light touch PSYCH: The patient's mood and manner are appropriate. Grooming and personal hygiene are appropriate. TRAVEL OUTSIDE OF THE [place] IN LAST 30 DAYS: No - Related Data Allergies/Adverse Reactions: No Known Allergies Allergy (Verified 10/18/19 12:49) Home Medications: Past Medical History - Social History Smoking Status: Unknown if Ever Smoked Family History: Reviewed & Not Pertinent Physical Exam - Vital signs Vitals: Temp Pulse Resp BP Pulse Ox 98.0 F 95 16 122/78 99 03/13/20 10:43 03/13/20 10:43 03/13/20 10:43 03/13/20 10:43 03/13/20 10:43 Course - Re-evaluation Re-evalutation: Given the above history and physical, with the with no previous ultrasound, with the vomiting without any obvious vaginal bleeding or flank pain, we will check electrolytes, treat the nausea, evaluate for the possibility of urinary tract infection, and reassess. 03/13/20 13:34 Labs, urine analysis, and imaging as recorded. Vital signs are stable. Patient denies any lightheadedness or dizziness at this time. No repeat abdominal tenderness. Still no vaginal bleeding. Given the above history and physical, patient will be discharged home with strict return precautions, course of Macrobid and nausea medications and follow- up with the MACHINE GRAINER. - Vital Signs Vital signs: Temp Pulse Resp BP Pulse Ox 98.0 F 95 18 121/60 100 03/13/20 10:43 03/13/20 10:43 03/13/20 13:01 03/13/20 13:00 03/13/20 13:01 - Laboratory Result Diagrams: 03/13/20 11:45 03/13/20 11:45 Laboratory results interpreted by me: 03/13/20 03/13/20 03/13/20 11:45 11:45 11:45 MCV 79 L MCH 25.9 L RDW 14.7 H Sodium 134.5 L Creatinine 0.50 L Glucose 71 L Urine Protein 30 H Urine Ketones TRACE H Ur Leukocyte Esterase SMALL H Urine HCG, Qual POSITIVE H Discharge - Discharge Clinical Impression: Nausea and vomiting during , Urine leukocytes Condition: Good Disposition: HOME, SELF-CARE Additional Instructions: Come back immediately for any worsening vomiting, lightheadedness or dizziness, chest pain, fevers, vaginal bleeding, or any other acute problems. Please take the antibiotics as prescribed, the nausea medications as needed, and follow-up with your MACHINE GRAINER. Prescriptions: Nitrofurantoin Monohyd/M-Cryst [Macrobid 100 mg Capsule] 100 mg PO BID #20 cap
[2020-03-13] MEDS ORDERED: NITROFURANTOIN MONOHYD/M-CRYST 100 MG CAPSULE PO ONE (13:38)
== END 2020-03-13 14:07 | disposition home or self-care (01) ==
LOC: ER 10:37
DX: O21.9 Vomiting of pregnancy, unspecified (principal); O26.891 Other specified pregnancy related conditions, first trimester; R39.89 Other symptoms and signs involving the genitourinary system; R19.7 Diarrhea, unspecified; O99.511 Diseases of the respiratory system complicating pregnancy, first trimester; J02.9 Acute pharyngitis, unspecified; Z3A.11 11 weeks gestation of pregnancy
CPT/HCPCS: 99285; 96360; 36415; 87070; 87880; 84702; 85025; 81025; 87077; 80048; 81001; 76801; J7030; J3490; J8499